=== PATIENT | male | born 2000 | race Hispanic/Latino ===

== ENCOUNTER 2018-07-03 07:26 | Emergency (ER) | payer OTHER, SELFPAY ==
--- NOTE | 2018-07-03 07:51 | ER ---
Nurse's Notes [facility] Name: Ross Sam Age: 18 yrs Sex: Male : 2000 Arrival Date: 07/03/2018 Time: 07:30 Bed 13 Private MD: None, None Diagnosis: Cellulitis of right lower limb Presentation: 07/03 07:40 Presenting complaint: Patient states: I noticed a red spot and rash to my right knee, sg its become painful and a little swollen, not really sure what it is. Transition of care: patient was not received from another setting of care. Onset of symptoms was July 03, 2018. Risk Assessment: Do you want to hurt yourself or someone else? Patient reports no desire to harm self or others. Initial Sepsis Screen: Does the patient meet any 2 criteria? No. Patient's initial sepsis screen is negative. Does the patient have a suspected source of infection? Yes: Skin breakdown/wound. Care prior to arrival: None. 07:40 Method Of Arrival: Ambulatory sg 07:40 Acuity: MAUREEN 4 sg Historical: - Allergies: 07:42 No Known Allergies; sg - Home Meds: 07:42 unknown antidepressant [Active]; sg - PMHx: 07:42 None; sg - PSHx: 07:42 Appendectomy; [place] Teeth Removed; sg - Immunization history:: Adult Immunizations up to date. - Social history:: Smoking status: Patient/guardian denies using tobacco. - Ebola Screening: : Patient negative for fever greater than or equal to 101.5 degrees Fahrenheit, and additional compatible Ebola Virus Disease symptoms Patient denies exposure to infectious person Patient denies travel to an Ebola-affected area in the 21 days before illness onset No symptoms or risks identified at this time. Screenin:45 Abuse screen: Denies threats or abuse. Denies injuries from another. Nutritional sg screening: No deficits noted. Tuberculosis screening: No symptoms or risk factors identified. Never had TB. Fall Risk None identified. Assessment: 07:43 General: Appears in no apparent distress. well groomed, well developed, well nourished, sg Behavior is calm, cooperative, appropriate for age. Pain: Complains of pain in right knee Quality of pain is described as aching. Neuro: No deficits noted. Cardiovascular: Capillary refill is brisk in bilateral fingers Patient's skin is warm and dry. Chest pain is denied. Respiratory: Airway is patent Respiratory effort is even, unlabored, Respiratory pattern is regular, symmetrical. GI: No signs and/or symptoms were reported involving the gastrointestinal system. : No signs and/or symptoms were reported regarding the genitourinary system. EENT: No signs and/or symptoms were reported regarding the EENT system. Derm: Rash noted that is red, on right knee and right lama Abscess located on right knee is dime sized, has no drainage, is red, is raised. Musculoskeletal: Circulation, motion, and sensation intact. Range of motion: intact in all extremities. Vital Signs: 07:41 BP 122 / 77; Pulse 78; Resp 16; Temp 97.2; Pulse Ox 99% on R/A; Weight 57.15 kg; Height sg 6 ft. 1 in. (185.42 cm); Pain 6/10; 07:41 Body Mass Index 16.62 (57.15 kg, 185.42 cm) sg ED Course: 07:30 Patient arrived in ED. mr 07:31 None, None is Private Physician. mr 07:39 Harinder Brennan PA is PHCP. cp 07:39 Nnamdi Paniagua MD is Attending Physician. cp 07:40 Moreno Rodriguez, TRACE is Primary Nurse. sg 07:41 Triage completed. sg 07:43 Arm band placed on. sg 07:45 Patient has correct armband on for positive identification. Bed in low position. Call sg light in reach. Pulse ox on. NIBP on. Head of bed elevated. Elevated right leg heat pack applied to area. 07:55 No provider procedures requiring assistance completed. Patient did not have IV access sg during this emergency room visit. 07:57 Wound care: area of redness outlined as ordered by the MICHELLE CANELA. sg Administered Medications: No medications were administered Outcome: 07:50 Discharge ordered by MD. cp 07:52 Discharged to home ambulatory, with friend. sg 07:52 Condition: good 07:52 Discharge instructions given to patient, Instructed on discharge instructions, follow up and referral plans. no drinking with medication, medication usage, safety practices, wound care, Demonstrated understanding of instructions, follow-up care, medications, wound care, Prescriptions given X 2. 07:55 Patient left the ED. iw Signatures: Moreno Rodriguez, RN RN sg Eveline Finch Irene, RN RN Harinder Gaines, ROLA PA cp
--- NOTE | 2018-07-03 07:51 | EDPHYS ---
Physician Documentation [facility] Name: Ross Sam Age: 18 yrs Sex: Male : 2000 Arrival Date: 07/03/2018 Time: 07:30 Bed 13 Private MD: None, None ED Physician Nnamdi Paniagua HPI: 07/03 07:44 This 18 yrs old Male presents to ER via Ambulatory with complaints of Leg cp Problem. 07:44 The patient presents with pain, that is acute, tenderness, erythema. The complaints cp affect the right lama. Onset: The symptoms/episode began/occurred yesterday. Associated signs and symptoms: Pertinent positives: warmth, Pertinent negatives calf tenderness, fever, numbness, swelling. Treatment prior to arrival includes: no previous treatment. Severity of symptoms: in the emergency department the symptoms are unchanged. Historical: - Allergies: 07:42 No Known Allergies; sg - Home Meds: 07:42 unknown antidepressant [Active]; sg - PMHx: 07:42 None; sg - PSHx: 07:42 Appendectomy; [place] Teeth Removed; sg - Immunization history:: Adult Immunizations up to date. - Social history:: Smoking status: Patient/guardian denies using tobacco. - Ebola Screening: : Patient negative for fever greater than or equal to 101.5 degrees Fahrenheit, and additional compatible Ebola Virus Disease symptoms Patient denies exposure to infectious person Patient denies travel to an Ebola-affected area in the 21 days before illness onset No symptoms or risks identified at this time. ROS: 07:46 Eyes: Negative for injury, pain, redness, and discharge. cp 07:46 Constitutional: Negative for body aches, chills, fever, poor PO intake. 07:46 ENT: Negative for drainage from ear(s), ear pain, sore throat, difficulty swallowing, difficulty handling secretions. 07:46 Cardiovascular: Negative for chest pain. 07:46 Respiratory: Negative for cough, shortness of breath, wheezing. 07:46 Abdomen/GI: Negative for abdominal pain, nausea, vomiting, and diarrhea. 07:46 Skin: Positive for cellulitis, erythema, of the right lama, Negative for swelling. 07:46 All other systems are negative. Exam: 07:47 Head/Face: Normocephalic, atraumatic. cp 07:47 Constitutional: The patient appears in no acute distress, alert, awake, non-toxic, well developed, well nourished. 07:47 Eyes: Periorbital structures: appear normal, Conjunctiva: normal, Lids and lashes: appear normal, bilaterally. 07:47 ENT: External ear(s): are unremarkable, Nose: is normal, Mouth: is normal. 07:47 Chest/axilla: Inspection: normal. 07:47 Cardiovascular: Rate: normal. 07:47 Respiratory: the patient does not display signs of respiratory distress, Respirations: normal. 07:47 Musculoskeletal/extremity: DVT Exam: No signs of deep vein thrombosis. 07:47 Skin: abscess, not appreciated, cellulitis, that is mild, well demarcated, on the right lama, injury, is not appreciated. Vital Signs: 07:41 BP 122 / 77; Pulse 78; Resp 16; Temp 97.2; Pulse Ox 99% on R/A; Weight 57.15 kg; Height sg 6 ft. 1 in. (185.42 cm); Pain 6/10; 07:41 Body Mass Index 16.62 (57.15 kg, 185.42 cm) sg MDM: 07:44 Patient medically screened. cp 07:50 Differential diagnosis: DVT, cellulitis, abscess, erysipelas. cp 07:50 Data reviewed: vital signs, nurses notes, and as a result, I will discharge patient. cp Counseling: I had a detailed discussion with the patient and/or guardian regarding: the historical points, exam findings, and any diagnostic results supporting the discharge/admit diagnosis, to return to the emergency department if symptoms worsen or persist or if there are any questions or concerns that arise at home. 07/03 07:46 Order name: [facility] [place]. Order: outline area of erythema; Complete Time: 07:47 cp Administered Medications: No medications were administered Disposition: 18:25 Co-signature as Attending Physician, Nnamdi Paniagua MD. Disposition: 07/03/18 07:50 Discharged to Home. Impression: Cellulitis of right lower limb. - Condition is Stable. - Discharge Instructions: Cellulitis, Adult. - Prescriptions for Ibuprofen 800 mg Oral Tablet - take 1 tablet by ORAL route every 8 hours As needed take with food; 30 tablet. Keflex 500 mg Oral Capsule - take 1 capsule by ORAL route every 6 hours for 10 days; 40 capsule. - Medication Reconciliation Form, Thank You Letter, Antibiotic Education, Prescription Opioid Use form. - Follow up: Private Physician; When: 1 - 2 days; Reason: Worsening of condition. - Problem is new. - Symptoms are unchanged. Signatures: Moreno Rodriguez RN RN sg Kiana Chávez RN RN iw Harinder Brennan PA PA cp Starr, Gregory, MD MD gs Corrections: (The following items were deleted from the chart) 07:55 07:50 07/03/2018 07:50 Discharged to Home. Impression: Cellulitis of right lower limb. iw Condition is Stable. Forms are Medication Reconciliation Form, Thank You Letter, Antibiotic Education, Prescription Opioid Use. Follow up: Private Physician; When: 1 - 2 days; Reason: Worsening of condition. Problem is new. Symptoms are unchanged. cp
[2018-07-03 12:14] VITALS: BP 122/77; TEMP 97.2; O2SAT 99
== END 2018-07-03 07:55 | disposition home or self-care (01) ==
LOC: ER 07:26
DX: L03.115 Cellulitis of right lower limb (principal)
CPT/HCPCS: 99283